=== PATIENT | female | born 1945 | race Caucasian/White ===

== ENCOUNTER 2016-12-09 13:14 | Observation (INO) | payer OTHER ==
[~2016-12-09] VITALS: Ht 154.9 cm; Wt 60.7 kg
[2016-12-09 14:04] VITALS: BP 118/60
[2016-12-09] MEDS ORDERED: LACTATED RINGERS 1,000 ML IV SCH (14:07)
[2016-12-09] MEDS ORDERED: FENTANYL PF 100 MCG/2ML ONE ×3 (14:07→17:53)
[2016-12-09] MEDS ORDERED: MIDAZOLAM 1 MG/ML, 2ML ONE (14:07)
[2016-12-09] MEDS ORDERED: ATOR20TA9 PO (14:10)
[2016-12-09] MEDS ORDERED: FLUO20TA25 PO (14:10)
[2016-12-09] MEDS ORDERED: HYDR-883 PO (14:10)
[2016-12-09] MEDS ORDERED: LEVO50TA5 PO (14:10)
[2016-12-09] MEDS ORDERED: LIDOCAINE 1%, 2ML SQ PRN (14:30)
[2016-12-09] MEDS ORDERED: BUPIVACAINE/PF 0.5% ONE (15:11)
[2016-12-09] MEDS ORDERED: GLYCOPYRROLATE 0.2MG/1ML, 5ML ONE (15:29)
[2016-12-09] MEDS ORDERED: CEFAZOLIN 1,000 MG ONE (16:05)
[2016-12-09] MEDS ORDERED: ONDANSETRON 2MG/ML, 2ML ONE (16:05)
[2016-12-09] MEDS ORDERED: DEXAMETHASONE 4 MG/ML, 1ML ONE (16:05)
[2016-12-09] MEDS ORDERED: PROPOFOL 10 MG/ML, 20ML ONE (16:05)
[2016-12-09] MEDS ORDERED: DIAZEPAM 5 MG/ML, 2ML IVPush PRN (17:30)
[2016-12-09] MEDS ORDERED: OXYcodone 5 MG/5 ML ORAL.SOL UDC PO PRN (17:30)
[2016-12-09] MEDS ORDERED: PROMETHAZINE 25 MG/ML, 1ML IV PRN (17:30)
[2016-12-09] MEDS ORDERED: ACETAMINOPHEN 325 MG TABLET PO PRN (17:30)
[2016-12-09] MEDS ORDERED: HYDROmorphone 1 MG/ML, 1ML IV PRN (17:30)
[2016-12-09] MEDS ORDERED: OXYcodone 5 MG/5 ML ORAL.SOL UDC ONE (17:40)
[2016-12-09] MEDS ORDERED: ACETAMINOPHEN 325 MG TABLET ONE (17:41)
[2016-12-09] MEDS ORDERED: ACETAMINOPHEN 650 MG/20.3 ML UDC ONE (17:41)
[2016-12-09] MEDS: FENTANYL PF 100 MCG/2ML IV PRN ×2 (17:55→18:03)
[2016-12-09] MEDS ORDERED: HYDROcodone/APAP 5/325 TABLET PO PRN (19:30)
[2016-12-09] MEDS ORDERED: morphine SULFATE 10 MG/ML, 1ML IV PRN (19:30)
[2016-12-09] MEDS ORDERED: ONDANSETRON 2MG/ML, 2ML IV PRN (19:30)
[2016-12-09] MEDS ORDERED: ATORVASTATIN 20 MG TABLET PO SCH (21:00)
[2016-12-09] MEDS ORDERED: OXYC5TAB3 PO (21:04)
[2016-12-10 00:05] VITALS: BP 124/59
[2016-12-10 04:23] VITALS: BP 115/75
[2016-12-10] MEDS ORDERED: LEVOTHYROXINE 50 MCG TABLET PO SCH (06:00)
[2016-12-10 07:21] VITALS: BP 113/65
[2016-12-10] MEDS: OXYcodone/APAP 5/325MG TABLET PO PRN ×2 (08:55→13:39)
[2016-12-10] MEDS ORDERED: FLUOXETINE 20 MG CAPSULE PO SCH (09:00)
[2016-12-10 13:19] VITALS: BP 116/73
[2016-12-10] MEDS ORDERED: FLU VACC QS2017-18 (36MOS+) UP/PF 0.5 ML IM-VACC ONE (14:30)
[2016-12-10 15:21] VITALS: BP 114/51
== END 2016-12-10 15:26 | disposition home or self-care (01) ==
LOC: OUT 13:14 → 4NOR 18:56 → OUT 23:45 → 4NOR 12-10 01:50
PROVIDERS: ADMIT Orthopaedic Surgery; ATTEND Orthopaedic Surgery
DX: S52.121A Displaced fracture of head of right radius, initial encounter for closed fracture (principal); W10.9XXA Fall (on) (from) unspecified stairs and steps, initial encounter; Y93.89 Activity, other specified; Y92.89 Other specified places as the place of occurrence of the external cause; Y99.8 Other external cause status
CPT/HCPCS: 24343; 24586; 24665; 73080; 76001; 90471; 90686; 93005; C1713; G0378; J0690; J1100; J2250; J2405; J2704; J3010; J3490; J7120